=== PATIENT | male | born 1955 | race Caucasian/White ===

== ENCOUNTER → 2022-12-10 09:41 | Outpatient (CLI) | payer MEDICARE, SELFPAY ==
[2022-12-10 20:25] LABS: Add Manual Diff / Slide Review NO; Basophils Absolute Auto 0 /uL (0-100); Basophils Percent Auto 0.5 % (0-2); Eosinophils Absolute Auto 200 /uL (0-450); Eosinophils Percent Auto 4.2 % (2-4); Hematocrit 43.6 % (41-53); Lymphocytes Absolute Auto 1500 /uL (1100-4500); Lymphocytes Percent Auto 37.4 % (25-40); Mean Corpuscular HGB Conc 34.4 % (30-36); Mean Corpuscular Hemoglobin 29.3 PG (26-34); Mean Corpuscular Volume 85.2 fL (80-100); Monocytes Absolute Auto 400 /uL (0-900); Monocytes Percent Auto 9.9 % (3-14); Neutrophils Absolute Auto 2000 /uL (1500-7000); Platelet Count 174 X10^3/uL (150-400); Red Blood Cell Count 5.12 X10^6/uL (4.5-5.9); Red Cell Distribution Width 13.5 % (11.6-14.8); White Blood Cell Count 4.1 X10^3/uL (4.5-11.0)
[2022-12-10 20:35] LABS: Alanine Aminotransferase 19 IU/L (<50); Albumin 3.9 g/dL (3.5-5.0); Albumin Globulin Ratio 1.3 (1.0-2.8); Alkaline Phosphatase 67 U/L (38-126); Aspartate Aminotransferase 25 IU/L (17-59); BUN Creatinine Ratio 23.4 (6-22); Bilirubin Total 0.9 mg/dL (0.2-1.3); Blood Urea Nitrogen 15 mg/dL (9-20); Calcium 8.7 mg/dL (8.4-10.2); Carbon Dioxide 31 mmol/L (22-32); Chloride 103 mmol/L (98-107); Cholesterol 182 mg/dL (140-199); Estimated Glomerular Filt Rate > 60 mL/min (>60); Globulin 2.9 g/dL (1.7-4.1); Glucose 86 mg/dL (80-110); HDL Cholesterol 52 mg/dL (40-60); HEMOLYSIS < 15 (0-50); LDL Cholesterol Calculated 117 mg/dL (<100); Potassium 4.1 mmol/L (3.4-5.1); Sodium 139 mmol/L (137-145); Total Protein 6.8 g/dL (6.3-8.2); Triglycerides 63 mg/dL (35-150)
[2022-12-10 21:01] LABS: Prostate Specific Antigen Scrn 2.97 ng/mL (0.1-4.0)
== END ==
PROVIDERS: PCP Family Medicine; Visit Provider Family Medicine
DX: Z00.00 Encounter for general adult medical examination without abnormal findings (principal); M25.519 Pain in unspecified shoulder; M75.01 Adhesive capsulitis of right shoulder; Z12.5 Encounter for screening for malignant neoplasm of prostate; N13.8 Other obstructive and reflux uropathy; N40.1 Benign prostatic hyperplasia with lower urinary tract symptoms
CPT/HCPCS: 80053; 80061; 85025; G0103

== ENCOUNTER → 2024-02-13 10:00 | Outpatient (CLI) | payer MEDICARE, SELFPAY ==
[2024-02-13 22:03] LABS: Cholesterol 184 mg/dL (140-199); Glucose 94 mg/dL (80-110); HDL Cholesterol 58 mg/dL (40-60); LDL Cholesterol Calculated 116 mg/dL (<100); Triglycerides 52 mg/dL (35-150)
[2024-02-13 22:35] LABS: Prostate Specific Antigen Scrn 2.84 ng/mL (0.1-4.0)
[2024-02-13 23:01] LABS: Hep C Virus Ab w/Reflex Quant NEGATIVE s/c (NEGATIVE)
== END ==
PROVIDERS: PCP Family Medicine; Visit Provider Family Medicine
DX: Z13.1 Encounter for screening for diabetes mellitus (principal); Z12.5 Encounter for screening for malignant neoplasm of prostate; Z13.6 Encounter for screening for cardiovascular disorders; Z11.59 Encounter for screening for other viral diseases; Z13.220 Encounter for screening for lipoid disorders
CPT/HCPCS: 80061; 82947; 86803; G0103

== ENCOUNTER → 2025-04-13 11:09 | Outpatient (CLI) | payer MEDICARE, SELFPAY ==
[2025-04-13 19:56] LABS: Cholesterol 195 mg/dL (140-199); Glucose 92 mg/dL (70-99); HDL Cholesterol 63 mg/dL (40-60); LDL Cholesterol Calculated 123 mg/dL (<100); Triglycerides 43 mg/dL (35-150)
[2025-04-13 20:25] LABS: Prostate Specific Antigen Scrn 3.37 ng/mL (0.1-4.0)
[2025-04-13 21:53] LABS: Hep C Virus Ab w/Reflex Quant NEGATIVE s/c (NEGATIVE)
== END ==
PROVIDERS: PCP Family Medicine; Visit Provider Family Medicine
DX: Z12.5 Encounter for screening for malignant neoplasm of prostate (principal); Z13.1 Encounter for screening for diabetes mellitus; Z13.6 Encounter for screening for cardiovascular disorders; Z11.59 Encounter for screening for other viral diseases
CPT/HCPCS: 80061; 82947; 86803; G0103